=== PATIENT | female | born 1960 | race Caucasian/White ===

== ENCOUNTER 2016-10-19 18:04 | Emergency (ER) | payer OTHER, MEDICAID ==
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
[2016-10-19 19:29] LABS: ALANINE AMINOTRANSFERASE 29 U/L (9-52); ALKALINE PHOSPHATASE 68 U/L (38-126); ANION GAP 10 (5-19); ASPARTATE AMINO TRANSFERASE 39 U/L (14-36); BILIRUBIN,DIRECT 0.8 mg/dL (0.0-0.4); BLOOD UREA NITROGEN 8 mg/dL (7-20); CALCIUM 9.1 mg/dL (8.4-10.2); CARBON DIOXIDE 22 mmol/L (22-30); CHLORIDE 111 mmol/L (98-107); CREATININE RESULT 0.85 mg/dL (0.52-1.25); GLUCOSE 81 mg/dL (75-110); POTASSIUM 3.3 mmol/L (3.6-5.0); SODIUM 143.1 mmol/L (137-145); TOTAL PROTEIN 7.3 g/dL (6.3-8.2)
[2016-10-19 19:30] LABS: ALCOHOL < 10 mg/dL (NONE DETECTED)
[2016-10-19 19:32] LABS: ABSOLUTE BASOPHILS # (AUTO) 0.1 10^3/uL (0.0-0.2); ABSOLUTE EOSINOPHILS # (AUTO) 0.3 10^3/uL (0.0-0.6); ABSOLUTE LYMPHOCYTES (AUTO) 2.5 10^3/uL (0.5-4.7); ABSOLUTE MONOCYTES (AUTO) 0.3 10^3/uL (0.1-1.4); ABSOLUTE NEUT (AUTO) 1.3 10^3/uL (1.7-8.2); BASOPHILS % (AUTO) 1.8 % (0-2); EOSINOPHILS % (AUTO) 5.7 % (0-6); HEMATOCRIT 40.5 % (36.0-47.0); HEMOGLOBIN 14.3 g/dL (12.0-15.5); HGB HCT DIFFERENCE 2.4; MEAN CORPUSCULAR HEMOGLOBIN 33.2 pg (27.0-33.4); MEAN CORPUSCULAR HGB CONC 35.3 g/dL (32.0-36.0); MEAN CORPUSCULAR VOLUME 94 fl (80-97); MONOCYTES % (AUTO) 6.1 % (3-13); RED BLOOD COUNT 4.31 10^6/uL (3.72-5.28); RED CELL DISTRIBUTION WIDTH 14.2 % (11.5-14.0); SEGMENTED NEUTROPHILS % (AUTO) 29.4 % (42-78); WHITE BLOOD COUNT 4.4 10^3/uL (4.0-10.5)
[2016-10-19 20:28] LABS: APPEARANCE,URINE CLOUDY; BILIRUBIN,URINE NEGATIVE (NEGATIVE); GLUCOSE, URINE NEGATIVE (NEGATIVE); KETONES,URINE NEGATIVE (NEGATIVE); LEUKOCYTE ESTERASE,URINE LARGE (NEGATIVE); NITRITE,URINE POSITIVE (NEGATIVE); PROTEIN,URINE NEGATIVE (NEGATIVE); URINE SPECIFIC GRAVITY 1.011
[2016-10-19] MEDS ORDERED: CEFTRIAXONE 1 GM/D5W RTU 50 ML IV ONE (20:31)
[2016-10-19 20:38] LABS: URINE BARBITURATES SCREEN NEGATIVE; URINE METHADONE SCREEN NEGATIVE; URINE OPIATES LOW NEGATIVE; URINE PHENCYCLIDINE SCREEN NEGATIVE
[2016-10-19 22:03] VITALS: BP 129/72
== END 2016-10-19 22:29 | disposition home or self-care (01) ==
LOC: ER 18:04
DX: S29.012A Strain of muscle and tendon of back wall of thorax, initial encounter (principal); V49.40XA Driver injured in collision with unspecified motor vehicles in traffic accident, initial encounter; N39.0 Urinary tract infection, site not specified; R31.9 Hematuria, unspecified; R41.3 Other amnesia; J45.909 Unspecified asthma, uncomplicated; F17.200 Nicotine dependence, unspecified, uncomplicated; Z79.899 Other long term (current) drug therapy; Z88.1 Allergy status to other antibiotic agents; Z88.0 Allergy status to penicillin
CPT/HCPCS: 99284; 96365; 36415; 87086; 80307 ×2; 85025; 87088; 80053; 81001; 87186; 71020; 70450; J0696

== ENCOUNTER 2016-11-26 18:19 | Inpatient (IN) | payer MEDICAID, OTHER ==
[2016-11-26] MEDS ORDERED: NORMAL SALINE 1000 ML 1,000 ML IV PRN ×3 (18:27→21:34)
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
[2016-11-26 18:52] LABS: HEMOGLOBIN 15.9 g/dL (12.0-15.5); HGB HCT DIFFERENCE -1.3; MEAN CORPUSCULAR HEMOGLOBIN 32.7 pg (27.0-33.4); MEAN CORPUSCULAR HGB CONC 32.4 g/dL (32.0-36.0); MEAN CORPUSCULAR VOLUME 101 fl (80-97); RED BLOOD COUNT 4.85 10^6/uL (3.72-5.28); RED CELL DISTRIBUTION WIDTH 15.8 % (11.5-14.0); WHITE BLOOD COUNT 7.8 10^3/uL (4.0-10.5)
[2016-11-26 19:03] LABS: ANION GAP 19 (5-19); BLOOD UREA NITROGEN 43 mg/dL (7-20); CARBON DIOXIDE 15 mmol/L (22-30); CHLORIDE 108 mmol/L (98-107); CREATININE RESULT 3.23 mg/dL (0.52-1.25); GLUCOSE 124 mg/dL (75-110); SODIUM 141.9 mmol/L (137-145)
--- NOTE | 2016-11-26 19:19 | RADIOLOGY REPORT (SQ) ---
EXAM DESCRIPTION: CHEST SINGLE VIEW COMPLETED DATE/TIME: 11/26/2016 7:10 pm REASON FOR STUDY: fall r cp COMPARISON: 10/19/2016. EXAM PARAMETERS: NUMBER OF VIEWS: One view. TECHNIQUE: Single frontal radiographic view of the chest acquired. RADIATION DOSE: NA LIMITATIONS: None. FINDINGS: LUNGS AND PLEURA: No opacities, masses or pneumothorax. No pleural effusion. MEDIASTINUM AND HILAR STRUCTURES: No masses. Contour normal. HEART AND VASCULAR STRUCTURES: Heart normal in size. Normal vasculature. BONES: No acute findings. HARDWARE: None in the chest. OTHER: No other significant finding. IMPRESSION: NO ACUTE RADIOGRAPHIC FINDING IN THE CHEST. TECHNICAL DOCUMENTATION: JOB ID: [id number]
--- NOTE | 2016-11-26 19:26 | RADIOLOGY REPORT (SQ) ---
EXAM DESCRIPTION: CT HEAD WITHOUT COMPLETED DATE/TIME: 11/26/2016 7:19 pm REASON FOR STUDY: fall lacx COMPARISON: 10/19/2016. TECHNIQUE: Axial images acquired through the brain without intravenous contrast. Images reviewed wi th bone, brain and subdural windows. Images stored on PACS. All CT scanners at this facility use dose modulation, iterative reconstruction, and/or weight based d osing when appropriate to reduce radiation dose to as low as reasonably achievable (ALARA). [facility]: Dose Right [facility]: CareDose [facility]: Dose Right [facility]: Teradose 4D [facility]: [employer] RADIATION DOSE: mGy. LIMITATIONS: None. FINDINGS: VENTRICLES: Normal size and contour. CEREBRUM: No masses. No hemorrhage. No midline shift. Normal phan/white matter differentiation. N o evidence for acute infarction. CEREBELLUM: No masses. No hemorrhage. No alteration of density. No evidence for acute infarction. EXTRAAXIAL SPACES: No fluid collections. No masses. ORBITS AND GLOBE: No intra- or extraconal masses. Normal contour of globe without masses. CALVARIUM: No fracture. PARANASAL SINUSES: No fluid or mucosal thickening. SOFT TISSUES: Small scalp injury. No mass or hematoma. OTHER: No other significant finding. IMPRESSION: NORMAL BRAIN CT WITHOUT CONTRAST. TECHNICAL DOCUMENTATION: JOB ID: [id number] Quality ID # [id number]: Final reports with documentation of one or more dose reduction techniques (e.g., Au tomated exposure control, adjustment of the mA and/or kV according to patient size, use of iterative reconstruction technique) 2010 [employer]- All Rights Reserved
--- NOTE | 2016-11-26 19:29 | RADIOLOGY REPORT (SQ) ---
EXAM DESCRIPTION: CT CERVICAL SPINE WITHOUT COMPLETED DATE/TIME: 11/26/2016 7:21 pm REASON FOR STUDY: neck pn fall COMPARISON: None. TECHNIQUE: Axial images acquired through the cervical spine without intravenous contrast. Images re viewed with lung, soft tissue and bone windows. Reconstructed coronal and sagittal MPR images review ed. Images stored on PACS. All CT scanners at this facility use dose modulation, iterative reconstruction, and/or weight based d osing when appropriate to reduce radiation dose to as low as reasonably achievable (ALARA). [facility]: Dose Right [facility]: CareDose [facility]: Dose Right [facility]: Teradose 4D [facility]: [employer] RADIATION DOSE: mGy. LIMITATIONS: None. FINDINGS: ALIGNMENT: Anatomic. MINERALIZATION: Normal. VERTEBRAL BODIES: No fractures or dislocation. DISCS: Multilevel disc space narrowing with osteophytes. FACETS, LATERAL MASSES, POSTERIOR ELEMENTS: Facet arthropathy. No fractures. No dislocation. No ac redding findings. HARDWARE: None in the spine. VISUALIZED RIBS: No fractures. LUNG APICES AND SOFT TISSUES: No significant or acute findings. OTHER: No other significant finding. IMPRESSION: CHRONIC DEGENERATIVE CHANGES. NO ACUTE FINDINGS. TECHNICAL DOCUMENTATION: JOB ID: [id number] Quality ID # [id number]: Final reports with documentation of one or more dose reduction techniques (e.g., Au tomated exposure control, adjustment of the mA and/or kV according to patient size, use of iterative reconstruction technique) 2010 [employer]- All Rights Reserved
[2016-11-26] MEDS ORDERED: SODIUM BICARBONATE 8.4% INJ 50 MEQ/50 ML DISP.SYRIN IV ONE (19:34)
[2016-11-26] MEDS ORDERED: ALBUTEROL SULFATE 0.083% NEB 2.5 MG/3 ML AMPUL NEB ONE (19:34)
[2016-11-26] MEDS ORDERED: DEXTROSE 50%-WATER 25 GM/50 ML DISP.SYRIN IV ONE (19:34)
[2016-11-26] MEDS ORDERED: CALCIUM GLUCONATE 1000 MG/10 ML INJ IV ONE (19:34)
[2016-11-26] MEDS ORDERED: INSULIN REG, HUMAN 100 UNIT/ML 3 ML VIAL (PYX) IV ONE (19:34)
[2016-11-26] MEDS ORDERED: LIDOCAINE 1% INJ (10 MG/ML) 10 ML MDV INJ ONE (19:36)
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
--- NOTE | 2016-11-26 19:43 | RADIOLOGY REPORT (SQ) ---
EXAM DESCRIPTION: CT ABD/PELVIS NO ORAL OR IV COMPLETED DATE/TIME: 11/26/2016 7:28 pm REASON FOR STUDY: fall hypoTN COMPARISON: None. TECHNIQUE: CT scan of the abdomen and pelvis performed without intravenous or oral contrast. Images reviewed with lung, soft tissue, and bone windows. Reconstructed coronal and sagittal MPR images revi ewed. All images stored on PACS. All CT scanners at this facility use dose modulation, iterative reconstruction, and/or weight based d osing when appropriate to reduce radiation dose to as low as reasonably achievable (ALARA). [facility]: Dose Right [facility]: CareDose [facility]: Dose Right [facility]: Teradose 4D [facility]: Smart [facility] RADIATION DOSE: Up-to-date CT equipment and radiation dose reduction techniques were employed. CTDIv ol: 5.8 mGy. DLP: 397 mGy-cm.mGy. LIMITATIONS: Motion artifact. FINDINGS: LOWER CHEST: No significant findings. No nodules or infiltrates. NON-CONTRASTED LIVER, SPLEEN, ADRENALS: Evaluation limited by lack of IV contrast. No identified sign ificant masses. PANCREAS: No masses. Tiny calcifications scattered throughout pancreas. No peripancreatic inflammat ory changes. GALLBLADDER: Indistinct appearance of the gallbladder partially obscured by motion. Cannot exclude c alculi or gallbladder wall thickening. RIGHT KIDNEY AND URETER: No suspicious masses. Assessment limited by lack of IV contrast. No signif icant calcifications. No hydronephrosis or hydroureter. LEFT KIDNEY AND URETER: No suspicious masses. Assessment limited by lack of IV contrast. No signifi cant calcifications. No hydronephrosis or hydroureter. AORTA AND RETROPERITONEUM: No aneurysm. No retroperitoneal masses or adenopathy. BOWEL AND PERITONEAL CAVITY: No obvious masses or inflammatory changes. No free fluid. APPENDIX: Not visualized. PELVIS, BLADDER, AND ABDOMINAL WALL:No abnormal masses. No free fluid. Bladder normal. BONES: No significant findings. OTHER: No other significant finding. IMPRESSION: 1. INDISTINCT APPEARANCE OF THE GALLBLADDER, PARTIALLY OBSCURED BY MOTION. CANNOT EXCLUDE CALCULI OR GALLBLADDER WALL THICKENING. FOLLOWUP GALLBLADDER ULTRASOUND MAY BE CONSIDERED. 2. TINY CALCIFICATIONS SCATTERED THROUGHOUT THE PANCREAS. POSSIBLE CHRONIC PANCREATITIS. 3. NO OTHER SIGNIFICANT OR ACUTE PROCESS IN THE ABDOMEN OR PELVIS. TECHNICAL DOCUMENTATION: JOB ID: [id number] Quality ID # [id number]: Final reports with documentation of one or more dose reduction techniques (e.g., Au tomated exposure control, adjustment of the mA and/or kV according to patient size, use of iterative reconstruction technique) 2010 [employer]- All Rights Reserved
--- NOTE | 2016-11-26 19:58 | EKG REPORT ---
SEVERITY:- ABNORMAL ECG - SINUS RHYTHM OLD INFERIOR PR BORDERLINE R WAVE PROGRESSION, ANTERIOR LEADS BORDERLINE PROLONGED QT INTERVAL : Confirmed by: Abram Reynolds MD 26-Nov-2016 19:56:58
[2016-11-26 20:18] LABS: ADD ON TESTING BLD IN LAB ACKNOWLEDGE
[2016-11-26 20:31] LABS: ANISOCYTOSIS SLIGHT; BASOPHILS % (MANUAL) 0 % (0-2); EOSINOPHILS % (MANUAL) 0 % (0-6); LYMPHOCYTES % (MANUAL) 21 % (13-45); POIKILOCYTOSIS SLIGHT; TOTAL CELLS COUNTED 100; TOXIC GRANULATION SLIGHT
[2016-11-26 20:33] LABS: ALANINE AMINOTRANSFERASE 41 U/L (9-52); ALBUMIN 3.8 g/dL (3.5-5.0); ALKALINE PHOSPHATASE 48 U/L (38-126); ASPARTATE AMINO TRANSFERASE 62 U/L (14-36); BILIRUBIN,TOTAL 1.9 mg/dL (0.2-1.3); MAGNESIUM 2.5 mg/dL (1.6-2.3); TOTAL PROTEIN 6.9 g/dL (6.3-8.2)
[2016-11-26] MEDS ORDERED: LIDOCAINE 1% INJ-PF (10 MG/ML) 30 ML SDV ONE (20:35)
[2016-11-26] MEDS ORDERED: ACETAMINOPHEN 325 MG TABLET PO PRN (21:42)
[2016-11-26] MEDS ORDERED: PROMETHAZINE HCL 25 MG TABLET PO PRN (21:43)
[2016-11-26] MEDS ORDERED: PHARMACY COMMUNICATION ORDER MC SCH (21:45)
[2016-11-26] MEDS ORDERED: CEFTRIAXONE 1 GM/D5W RTU 50 ML IV SCH (22:00)
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
[2016-11-26 23:39] LABS: ANION GAP 17 (5-19); BLOOD UREA NITROGEN 45 mg/dL (7-20); CALCIUM 8.4 mg/dL (8.4-10.2); CARBON DIOXIDE 17 mmol/L (22-30); CHLORIDE 112 mmol/L (98-107); CREATININE RESULT 3.15 mg/dL (0.52-1.25); GLUCOSE 106 mg/dL (75-110); SODIUM 146.2 mmol/L (137-145)
[2016-11-26 23:50] LABS: POTASSIUM 4.4 mmol/L (3.6-5.0)
[2016-11-27] MEDS ORDERED: NORMAL SALINE 1000 ML 1,000 ML IV ONE ×2 (00:16→00:45)
[2016-11-27] MEDS ORDERED: 1/2 NORMAL SALINE 1,000 ML IV PRN ×2 (00:22→02:19)
[2016-11-27] MEDS ORDERED: 1/2 NORMAL SALINE 1,000 ML IV ONE ×2 (01:15→02:30)
[2016-11-27] MEDS ORDERED: NOREPINEPHRINE BITARTRATE INJ/PF 4 MG/4 ML SDV IV ONE (01:53)
[2016-11-27 02:05] LABS: APPEARANCE,URINE CLOUDY; BILIRUBIN,URINE NEGATIVE (NEGATIVE); GLUCOSE, URINE 50 mg/dL (NEGATIVE); KETONES,URINE NEGATIVE (NEGATIVE); LEUKOCYTE ESTERASE,URINE MODERATE (NEGATIVE); NITRITE,URINE NEGATIVE (NEGATIVE); PROTEIN,URINE 100 mg/dL (NEGATIVE); URINE SPECIFIC GRAVITY 1.024
[2016-11-27 02:17] LABS: URINE BARBITURATES SCREEN NEGATIVE; URINE METHADONE SCREEN NEGATIVE; URINE OPIATES LOW NEGATIVE; URINE PHENCYCLIDINE SCREEN NEGATIVE
[2016-11-27] MEDS ORDERED: DEXTROSE 50%-WATER 25 GM/50 ML DISP.SYRIN IV PRN ×2 (02:21)
[2016-11-27] MEDS ORDERED: PHENYLEPHRINE HCL INJ/PF 10 MG/1 ML SDV ONE ×2 (02:21→04:12)
[2016-11-27] MEDS ORDERED: DEXTROSE 40% GEL 15 GM TUBE PO PRN ×2 (02:21)
[2016-11-27] MEDS ORDERED: GLUCAGON,HUMAN RECOMB 1 MG INJ SUBCUT PRN (02:21)
[2016-11-27] MEDS ORDERED: PIPERACILLIN/TAZOBACTAM 4.5 GM VIAL IV PRN (02:28)
[2016-11-27] MEDS ORDERED: PIPERACILLIN SODIUM/TAZOBACTAM 4.5 GM in NORMAL SALINE 100 ML IV ONE (02:30)
[2016-11-27] MEDS ORDERED: PIPERACILLIN SODIUM/TAZOBACTAM 4.5 GM in NORMAL SALINE 100 ML IV SCH (02:30)
[2016-11-27] MEDS ORDERED: PHARMACY COMMUNICATION ORDER MC SCH (02:30)
[2016-11-27] MEDS ORDERED: PIPERACILLIN/TAZOBACTAM 2.25 GM VIAL IV PRN (02:59)
[2016-11-27] MEDS ORDERED: PIPERACILLIN/TAZOBACTAM 2.25 GM VIAL IV ONE (02:59)
[2016-11-27 03:11] LABS: ANION GAP 16 (5-19); BLOOD UREA NITROGEN 44 mg/dL (7-20); CALCIUM 8.2 mg/dL (8.4-10.2); CARBON DIOXIDE 15 mmol/L (22-30); CHLORIDE 112 mmol/L (98-107); CREATININE RESULT 3.22 mg/dL (0.52-1.25); GLUCOSE 107 mg/dL (75-110); SODIUM 143.3 mmol/L (137-145)
[2016-11-27] MEDS ORDERED: ACETAMINOPHEN 650 MG SUPP.RECT PR PRN (03:13)
[2016-11-27] MEDS ORDERED: PROMETHAZINE HCL 25 MG SUPP.RECT PR PRN (03:13)
[2016-11-27] MEDS ORDERED: VASOPRESSIN INJ 20 UNIT/1 ML VIAL ONE (03:30)
[2016-11-27] MEDS ORDERED: PROPOFOL INJ 200 MG/20 ML VIAL IV ONE (03:42)
[2016-11-27 03:44] LABS: ARTERIAL BLOOD BASE EXCESS -12.6 mmol/L; ARTERIAL BLOOD O2 SATURATION 15.1 % (94-98)
[2016-11-27] MEDS ORDERED: SODIUM BICARBONATE 8.4% INJ 50 MEQ/50 ML DISP.SYRIN ONE (03:53)
[2016-11-27] MEDS ORDERED: INSULIN REG, HUMAN 100 UNIT/ML 3 ML VIAL (PYX) ONE (03:53)
[2016-11-27] MEDS ORDERED: DEXTROSE 50%-WATER 25 GM/50 ML DISP.SYRIN IV ONE (03:54)
[2016-11-27] MEDS ORDERED: ALBUTEROL SULFATE 0.083% NEB 2.5 MG/3 ML AMPUL NEB ONE (03:56)
--- NOTE | 2016-11-27 04:15 | RADIOLOGY REPORT (SQ) ---
EXAM DESCRIPTION: CHEST SINGLE VIEW COMPLETED DATE/TIME: 11/27/2016 3:47 am REASON FOR STUDY: POST ETT COMPARISON: Chest x-ray and CT chest 11/26/2016. EXAM PARAMETERS: NUMBER OF VIEWS: One view TECHNIQUE: Single frontal radiograph of the chest. RADIATION DOSE: N/A LIMITATIONS: The patient is rotated. FINDINGS: TEMPORARY SUPPORT DEVICES:Endotracheal tube terminates at the dennis. NG tube courses bel ow the left eileen-diaphragm in to the stomach. LUNGS AND PLEURA: No consolidation, pleural effusion or pneumothorax. MEDIASTINUM AND HILAR STRUCTURES: No masses. Contour normal. HEART AND VASCULAR STRUCTURES: Heart size normal. No overt vascular congestion. BONES: No acute findings. IMPRESSION: No acute radiographic finding in the chest. Low lying endotracheal tube, retraction by approximately 3 cm recommended. COMMENT: Pertinent findings on the imaging study reported as a CRITICAL RESULT to DELBERT HORNE MD at04:06 hrs on 11/27/2016. Category of Critical Result: Low lying endotracheal tube, retraction recommended. TECHNICAL DOCUMENTATION: JOB ID: [id number] 2010 [employer] All Rights Reserved
[2016-11-27] MEDS ORDERED: DEXTROSE 5%-WATER 250 ML with NOREPINEPHRINE BITARTRATE 4 MG IV PRN ×2 (04:17)
[2016-11-27] MEDS ORDERED: DEXTROSE 5%-WATER 1000 ML 1,000 ML with SODIUM BICARBONATE 150 MEQ IV PRN ×2 (04:17)
[2016-11-27] MEDS ORDERED: DEXTROSE 5%-WATER 250 ML with VASOPRESSIN 100 UNIT IV PRN ×2 (04:17)
[2016-11-27] MEDS ORDERED: DEXTROSE 5%-WATER 250 ML with PHENYLEPHRINE HCL 40 MG IV PRN ×2 (04:17)
[2016-11-27 04:23] LABS: ARTERIAL BLOOD BASE EXCESS -16.5 mmol/L; ARTERIAL BLOOD O2 SATURATION 78.3 % (94-98)
[2016-11-27] MEDS ORDERED: EPINEPHRINE INJ 1 MG/10 ML DISP.SYRIN ONE (05:00)
[2016-11-27] MEDS ORDERED: ATROPINE SULFATE INJ 1 MG/10 ML DISP.SYRIN IV ONE (05:00)
--- NOTE | 2016-11-27 05:22 | RADIOLOGY REPORT (SQ) ---
EXAM DESCRIPTION: CHEST SINGLE VIEW COMPLETED DATE/TIME: 11/27/2016 4:53 am REASON FOR STUDY: et tube repositioned COMPARISON: Chest x-ray 11/27/2016 at 03:32 hours. EXAM PARAMETERS: NUMBER OF VIEWS: One view TECHNIQUE: Single frontal radiographic view of the chest acquired portable supine on 11/27/2016 at 04 :24 hours. RADIATION DOSE: N/A LIMITATIONS: Pacemaker pad is partially obscuring the right hemithorax. FINDINGS: TEMPORARY SUPPORT DEVICES:ETT in expected location. NG tube courses below the left eileen-d iaphragm in to the stomach. LUNGS AND PLEURA: No consolidation, pleural effusion or pneumothorax. MEDIASTINUM AND HILAR STRUCTURES: No masses. Contour normal. HEART AND VASCULAR STRUCTURES: Heart is mildly enlarged. There is mild central vascular congestion. BONES: No acute findings. IMPRESSION: Mild cardiomegaly and central vascular congestion. Support devices in expected locations. TECHNICAL DOCUMENTATION: JOB ID: [id number] 2010 [employer]- All Rights Reserved
[2016-11-27 05:32] LABS: ABSOLUTE BASOPHILS # (AUTO) 0.1 10^3/uL (0.0-0.2); ABSOLUTE LYMPHOCYTES (AUTO) 3.4 10^3/uL (0.5-4.7); ABSOLUTE MONOCYTES (AUTO) 0.8 10^3/uL (0.1-1.4); BASOPHILS % (AUTO) 0.5 % (0-2); EOSINOPHILS % (AUTO) 0.4 % (0-6); LYMPHOCYTES % (AUTO) 27.5 % (13-45); MONOCYTES % (AUTO) 6.5 % (3-13); SEGMENTED NEUTROPHILS % (AUTO) 65.1 % (42-78)
[2016-11-27 05:40] LABS: PROTHROMBIN TIME 29.5 SEC (11.4-15.4)
[2016-11-27 05:41] LABS: PARTIAL THROMBOPLASTIN TIME 51.2 SEC (23.5-35.8)
[2016-11-27 05:44] LABS: ALANINE AMINOTRANSFERASE 43 U/L (9-52); ALBUMIN 2.3 g/dL (3.5-5.0); ALKALINE PHOSPHATASE 32 U/L (38-126); ANION GAP 19 (5-19); ASPARTATE AMINO TRANSFERASE 77 U/L (14-36); BILIRUBIN,TOTAL 1.9 mg/dL (0.2-1.3); BLOOD UREA NITROGEN 42 mg/dL (7-20); CARBON DIOXIDE 12 mmol/L (22-30); CHLORIDE 110 mmol/L (98-107); CREATININE RESULT 3.03 mg/dL (0.52-1.25); GLUCOSE 252 mg/dL (75-110); POTASSIUM 5.1 mmol/L (3.6-5.0); SODIUM 140.5 mmol/L (137-145); TOTAL PROTEIN 4.7 g/dL (6.3-8.2)
[2016-11-27] MEDS ORDERED: EPINEPHRINE INJ 30 MG/30 ML VIAL ONE (05:44)
[2016-11-27] MEDS ORDERED: ATROPINE SULFATE INJ 1 MG/1 ML VIAL ONE (05:45)
[2016-11-27 05:57] LABS: CALCIUM 6.9 mg/dL (8.4-10.2)
[2016-11-27 05:58] LABS: HEMATOCRIT 39.6 % (36.0-47.0); HGB HCT DIFFERENCE -1.5; MEAN CORPUSCULAR HEMOGLOBIN 33.1 pg (27.0-33.4); MEAN CORPUSCULAR HGB CONC 32.1 g/dL (32.0-36.0); MEAN CORPUSCULAR VOLUME 103 fl (80-97); RED BLOOD COUNT 3.84 10^6/uL (3.72-5.28); RED CELL DISTRIBUTION WIDTH 16.4 % (11.5-14.0); WHITE BLOOD COUNT 12.3 10^3/uL (4.0-10.5)
[2016-11-27 06:00] LABS: HEMOGLOBIN 12.7 g/dL (12.0-15.5)
[2016-11-27] MEDS ORDERED: CALCIUM GLUCONATE 1000 MG/10 ML INJ IV ONE ×2 (06:01→06:02)
[2016-11-27] MEDS ORDERED: SUCCINYLCHOLINE CHLORIDE INJ 200 MG/10 ML VIAL ONE (07:56)
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
[2016-11-27] MEDS ORDERED: DOCUSATE SODIUM 100 MG CAPSULE PO SCH (10:00)
--- NOTE | 2016-11-27 10:01 | EKG REPORT ---
SEVERITY:- ABNORMAL ECG - SINUS RHYTHM LAD, CONSIDER LAFB OR INFERIOR INFARCT CONSIDER ANTERIOR INFARCT BORDERLINE PROLONGED QT INTERVAL : Confirmed by: Abram Reynolds MD 27-Nov-2016 10:00:44
[2016-11-27 21:10] VITALS: BP 85/58
--- NOTE | 2017-01-05 20:30 | Death Summary ---
Summary Date : 11/27/16 Time of :: 06:02 Resuscitation Status: Full Code Primary Care Provider: JILLIAN Sandoval - Final Diagnosis (1) ARF (acute renal failure) Is this a current diagnosis for this admission?: Yes (2) Adverse effects of medication Is this a current diagnosis for this admission?: Yes (3) Elevated LFTs Is this a current diagnosis for this admission?: Yes (4) Elevated troponin Is this a current diagnosis for this admission?: Yes (5) Fall Is this a current diagnosis for this admission?: Yes (6) Forehead laceration Is this a current diagnosis for this admission?: Yes (7) Hyperkalemia Is this a current diagnosis for this admission?: Yes (8) Thrombocytopenia Is this a current diagnosis for this admission?: Yes (9) UTI (urinary tract infection) Is this a current diagnosis for this admission?: Yes (10) Hypotension Is this a current diagnosis for this admission?: Yes (11) HTN (hypertension) Is this a current diagnosis for this admission?: Yes (12) Hepatitis B Is this a current diagnosis for this admission?: Yes Hospital Course:: 56-year-old female with underlying hypertension, arthritis, chronic urinary tract infections, and hepatitis B who presented to the emergency room for evaluation of falls. Admission diagnoses included acute renal failure, felt due to lisinopril, which patient had recently started. Also noted to have urinary tract infection. Please refer to transcribed history and physical for more complete discussion of same. Blood pressures were initially somewhat low in the emergency room, but responded appropriately to IV fluids. Patient was subsequently transferred to a monitored bed. However, patient once again began experiencing episodes of hypotension, despite IV fluids and was subsequently transferred to the intensive care unit. She was given further IV fluid, both in the form of boluses and maintenance infusion along with initiation of Levophed drip. Patient experienced nausea and had an episode of bradycardia with an overall worsening of her clinical appearance. Intubated by CHIEF OPERATING ENGINEER. Due to persistent hypotension, [place]-Synephrine, followed by vasopressin, infusions were also started, with patient eventually on 3 vasopressors. Subsequent clinical course deteriorated. She experienced recurrent episodes of pulseless electrical activity, requiring repeat ACLS full code maneuvers. Despite these maneuvers, clinical deterioration continued, and she eventually at 6:02 AM. Please refer to provider note on November 27, 2016.
== END 2016-11-27 06:02 | DRG 683 ==
LOC: ER 18:19 → EH 20:20 → UNDOADMIN 20:20 → EH 21:37 → 3S 11-27 00:20 → EH 11-27 00:20 → ICU 11-27 01:19 → 3S 11-27 01:19
PROVIDERS: ADMIT Family Medicine; ATTEND Family Medicine
PROC: 0HQ1XZZ Repair Face Skin, External Approach (ICD-10-PCS; 2016-11-26)
PROC: 5A1935Z Respiratory Ventilation, Less than 24 Consecutive Hours (ICD-10-PCS; principal; 2016-11-27)
PROC: 0BH17EZ Insertion of Endotracheal Airway into Trachea, Via Natural or Artificial Opening (ICD-10-PCS; 2016-11-27)
DX: N17.9 Acute kidney failure, unspecified (principal); N39.0 Urinary tract infection, site not specified; B19.10 Unspecified viral hepatitis B without hepatic coma; I95.2 Hypotension due to drugs; T46.4X5A Adverse effect of angiotensin-converting-enzyme inhibitors, initial encounter; I10 Essential (primary) hypertension; S01.81XA Laceration without foreign body of other part of head, initial encounter; W19.XXXA Unspecified fall, initial encounter; E87.5 Hyperkalemia; D69.6 Thrombocytopenia, unspecified; J45.909 Unspecified asthma, uncomplicated; M19.90 Unspecified osteoarthritis, unspecified site; R00.1 Bradycardia, unspecified; K21.9 Gastro-esophageal reflux disease without esophagitis; F41.9 Anxiety disorder, unspecified; F32.9 Major depressive disorder, single episode, unspecified; R74.8 Abnormal levels of other serum enzymes; Z90.710 Acquired absence of both cervix and uterus; Z87.891 Personal history of nicotine dependence; Z79.899 Other long term (current) drug therapy; Z88.3 Allergy status to other anti-infective agents
CPT/HCPCS: 31500; 36415; 70450; 71010; 71250; 72125; 74176; 80048; 80053; 80076; 80307; 81001; 82803; 82962; 83735; 84443; 84484; 85025; 85027; 85610; 85730; 87040; 92950; 93005; 93010; 94002; 96365; 96375; 99291; J0171; J0330; J0461; J0610; J1815; J2704; J3490; J7030